=== PATIENT | male | born 1970 | race Asian ===

== ENCOUNTER 2016-05-18 18:59 | Outpatient (CLI) | payer OTHER | END 2016-05-18 19:00 | disposition home or self-care (01) | DX: R94.5 Abnormal results of liver function studies (principal); R93.2 Abnormal findings on diagnostic imaging of liver and biliary tract ==

== ENCOUNTER 2016-05-28 16:41 | Outpatient (CLI) | payer OTHER ==
[2016-05-28] MEDS ORDERED: IOPAMIDOL-300 100 ML VIAL IVP ONE (17:24)
== END 2016-05-28 16:42 | disposition home or self-care (01) ==
DX: K76.0 Fatty (change of) liver, not elsewhere classified (principal); R93.2 Abnormal findings on diagnostic imaging of liver and biliary tract
CPT/HCPCS: 74170; Q9967

== ENCOUNTER 2021-08-13 15:06 | Outpatient (CLI) | payer OTHER ==
--- NOTE | 2021-08-14 08:17 | XRAY Report ---
PROCEDURE: Thoracic Spine 2 View INDICATIONS: LOW BACK PAIN WITH SURGICAL CORRECTION TECHNIQUE: 3 views of the thoracic spine were acquired. COMPARISON: X-ray lumbar spine, 10/17/2017 and 08/13/2021. FINDINGS: Bones: Surgical fusion at T10-L2. Mild chronic question deformity of T12, unchanged since 10/17/2017 . The level degenerative disc disease, moderate at T5-T6, T6-T7, T7-T8, T8-T9 and T9-T10. No suspici ous bony lesions. 12 pairs of ribs are noted, and appear intact where visualized. Soft tissues: No paravertebral stripe thickening. IMPRESSION: 1. Stable mild chronic compression fracture of T12. 2. Multilevel degenerative disc disease. 3. Postsurgical changes with posterior fusion at T10-L2. Reviewed by: Leydi Jenkins MD on 08/14/2021 8:16 AM PDT Approved by: Leydi Jenkins MD on 08/14/2021 8:16 AM PDT Station ID: [id number]
--- NOTE | 2021-08-14 08:29 | XRAY Report ---
PROCEDURE: Lumbar Spine 2 View INDICATIONS: LOW BACK PAIN TECHNIQUE: 2 views of the lumbar spine were acquired. COMPARISON: X-ray thoracic spine, 08/13/2021. X-ray, lumbar spine, 10/17/2017. FINDINGS: Bones: 5 [id number] vertebrae are present. There is grade 1 anterolisthesis of L5 on S1, uncha nged since 10/17/2017. Postsurgical changes are present with posterior fusion at T10-L2. The right fusion talia is fractured j ust below the T11 pedicular screw. The appearance, however, is unchanged since 10/17/2021. Mild chronic compression fracture of T10 is again noted, unchanged. No suspicious bony lesions. There is moderate degenerative disc disease at L2-L3, L3-L4 and L4-L5, mild degenerative disease at L 5-S1. Moderate facet arthropathy L3-L4, L4-L5 and L5-S1. Compared to last exam, there is progression of lumbar spine degeneration. Soft tissues: Overlying bowel gas pattern is normal. No suspicious soft tissue calcifications. IMPRESSION: 1. Postsurgical changes with spinal fusion. There is chronic fracture of the right fusion talia just be low the right T11 particular screw. The alignment is stable. 2. Mild chronic compression fracture of T10, stable. 3. Grade 1 anterolisthesis of L5 on S1. 4. Progression of degenerative disc and facet disease in lumbar spine. Reviewed by: Leydi Jenkins MD on 08/14/2021 8:27 AM PDT Approved by: Leydi Jenkins MD on 08/14/2021 8:27 AM PDT Station ID: [id number]
== END 2021-08-13 15:07 | disposition home or self-care (01) ==
LOC: DI 15:06
PROVIDERS: ATTEND Student in an Organized Health Care Education/Training Program
DX: M48.54XD Collapsed vertebra, not elsewhere classified, thoracic region, subsequent encounter for fracture with routine healing (principal); M43.17 Spondylolisthesis, lumbosacral region; M47.816 Spondylosis without myelopathy or radiculopathy, lumbar region; M47.817 Spondylosis without myelopathy or radiculopathy, lumbosacral region; M51.36 Other intervertebral disc degeneration, lumbar region; M51.37 Other intervertebral disc degeneration, lumbosacral region; Z98.1 Arthrodesis status; M51.34 Other intervertebral disc degeneration, thoracic region

== ENCOUNTER 2023-10-18 14:03 | Outpatient (CLI) | payer OTHER ==
--- NOTE | 2023-10-18 21:15 | Ultrasound Report ---
PROCEDURE: Extremity Soft Tissue Limited INDICATIONS: LEFT FOOT LUMP TECHNIQUE: Real-time scanning was performed of the left foot, with image documentation. COMPARISON: None. FINDINGS: Focused ultrasound examination over lateral aspect of left foot at patient's reported area of palpable lump shows a 7 x 5 x 6 mm heterogeneously hypoechoic structure with through acoustic enh ancement and internal low-level echo. No internal vascularity is seen. IMPRESSION: Finding likely represent small complex ganglion cyst within lateral left soft tissue at patient's reported area of palpable lump as described above. Clinical and sonographic follow-up is re commended. Reviewed by: Jeff Arreaga MD on 10/18/2023 9:14 PM PDT Approved by: Jeff Arreaga MD on 10/18/2023 9:14 PM PDT Station ID: [id number]
== END 2023-10-18 14:04 | disposition home or self-care (01) ==
LOC: DI 14:03
PROVIDERS: ATTEND Student in an Organized Health Care Education/Training Program
DX: R22.42 Localized swelling, mass and lump, left lower limb (principal)